=== PATIENT | female | born 1965 | race Caucasian/White ===

== ENCOUNTER 2018-10-08 09:00 | Outpatient (RCR) | payer OTHER, SELFPAY ==
--- NOTE | 2019-04-11 08:14 | HP.PT.NRP ---
HP - Discharge Summary (1) - Patient Information UGO COE was seen in my office for initial evaluation on . The following Plan of Care was established for this patient: This patient was last seen in our office . Pertinent comments regarding their Physical therapy will appear below: Patient is appropriate for d/c at this time. At this point I will be discontinuing this patient from physical therapy. I would be happy to see this patient again in the future if found appropriate by the physician. Thank you! DAVID LincolnT
== END 2018-10-08 19:00 | disposition home or self-care (01) ==
LOC: PT 09:00
PROVIDERS: Family Provider Family Medicine; PCP Family Medicine; Referring Provider Family Medicine; Visit Provider Family Medicine
DX: M50.30 Other cervical disc degeneration, unspecified cervical region (principal); M79.2 Neuralgia and neuritis, unspecified

== ENCOUNTER 2020-06-10 21:27 | Emergency (ER) | payer OTHER, SELFPAY ==
[2020-06-10 21:28] VITALS: BP 144/110; PULSE 90; RESP 18; TEMP 36.6; O2SAT 100; BMI 22.8
--- NOTE | 2020-06-10 21:40 | EKG12_ITS ---
Test Reason : CP Blood Pressure : / mmHG Vent. Rate : 085 BPM Atrial Rate : 085 BPM P-R Int : 132 ms QRS Dur : 090 ms QT Int : 378 ms P-R-T Axes : 032 071 025 degrees QTc Int : 449 ms Normal sinus rhythm with sinus arrhythmia Normal ECG Confirmed by LEIGH GOMEZ, TIFFANY ([id number]), acquisition editor ANALIA THRASHER ([id number]) on 06/13/2020 11:28:50 AM Referred By: BRAXTON Confirmed By:TIFFANY ABRAHAM MD
[2020-06-10 21:55] VITALS: O2SAT 100
[2020-06-10 21:57] VITALS: BP 155/88; PULSE 94; RESP 14; TEMP 36.6; O2SAT 100
[2020-06-10] MEDS: Aspirin 81 MG TAB.CHEW 324 MG PO (22:05)
--- NOTE | 2020-06-10 22:05 | ED.VIS.GEN ---
History of Present Illness Chief Complaint: Shortness of Breath Narrative: 54-year-old female with no significant past medical history presenting with sensation of shortness of breath which she describes as not able to take a deep breath. She has no history of this. Last night she was out to drinks with friends when she noticed happened. This lasted about 30 minutes. Upon going home she was able to sleep but had multiple episodes of this over the course of today. She does not describe it as chest pain. She also states that she had heartburn with it. She is not ever had heartburn before. Patient also states that although she has been working from home she did have her son's girlfriend home from college at [employer] who did test positive for COVID a couple of weeks ago. She reportedly stayed home and quarantined, however she is already gone back to school after her quarantine. She is back at their house over the last couple of days. They went out to a restaurant and they did not wear masks. Patient denies fever, chills, myalgias, loss of taste or smell. Nobody else is sick in her household. She has no history of DVT/PE and no risk factors. Past Medical History - Allergies and Home Meds Allergies/Adverse Reactions: Allergies No Known Allergies Allergy (Verified 06/10/20 21:30) Primary Care Physician: NOT,DEFINED [NON-STAFF] - Past Medical History: None Surgical History: noncontributory Lives: Spouse/ Significant Other Smoking Status: Never smoker Alcohol: None Drugs: None Review of Systems General: Denies: Chills, Fever, Sweats Eyes: Denies: Visual changes - bilaterally, Diplopia ENT: Denies: Rhinorrhea, Sore throat Cardiovascular: Reports: Chest pain - Chest feels congested.. Denies: Palpitations Respiratory: Denies: Dyspnea, Cough, Dyspnea on exertion Gastrointestinal: Denies: Abdominal pain, Nausea, Vomiting, Diarrhea, Melena, Hematochezia Genitourinary: Denies: Dysuria, Hematuria, Frequency Musculoskeletal: Reports: Myalgias. Denies: Arthralgias Skin: Denies: Rash, Abscess Neurological: Denies: Headache, Weakness Psych: Denies: Depression, Anxiety Physical Exam Vital Signs/Narrative: Vital Signs Temp Pulse Resp BP Pulse Ox 06/10/20 21:57 97.8 F 94 14 155/88 H 100 06/10/20 21:55 100 06/10/20 21:28 97.8 F 90 18 144/110 H 100 Inital Vital Signs reviewed: Yes General: Well nourished Head: Normocephalic, Atraumatic Eyes: Perrl, EOMI ENT: Moist mucous membranes, No rhinorrhea Cardiovascular: Regular rate, Regular rhythm, No murmurs Respiratory: No distress, CTA bilaterally, Chest nontender Abdomen: Soft Extremities: Nontender, No edema Skin: Normal color, No rash Neurological: Alert, Oriented x3 Psychological: Normal affect, Normal Mood Diagnostic/Tx/Re-eval Clinical Impression(s) from Imaging Studies Chest X-Ray 06/10/20 22:25 IMPRESSION: Normal x-ray examination of the chest. Electronically Signed: Gracejailene Neris, at 22:46 EDT Tel , Service support , Laboratory Data 06/10/20 06/10/20 21:45 21:45 WBC 8.6 RBC 4.54 Hgb 13.5 Hct 40.2 MCV 88.5 MCH 29.7 MCHC 33.6 RDW Std Deviation 38.9 RDW Coeff of Vlad 12.0 Plt Count 315 MPV 10.1 Immature Gran % (Auto) 0.100 Neut % (Auto) 49.4 Lymph % (Auto) 39.6 [place] % (Auto) 9.0 Eos % (Auto) 0.9 Baso % (Auto) 1.0 Absolute Neuts (auto) 4.2 Absolute Lymphs (auto) 3.40 Nucleated RBC % 0 D-Dimer Quant (PE/DVT) < 0.27 L - Rhythm Strip Rhythm Strip: Sinus Rhythm - EKG Initial EKG Interpretation: Sinus Rhythm, No Acute Injury Pattern - Medical Decision Making Patient was seen and evaluated on arrival for sensation of shortness of breath. She does describe a sensation of congestion in the center of her chest. She states that she has had several 30-minute episodes of the symptoms. She has no history of this. She denies cardiac or pulmonary history. She does have possible exposure to COVID?19 was kept in precautions and she was tested. Besides the feeling of congestion she has no other myalgias, fever, cough, loss of taste or smell. Heart score is 1 therefore she will have delta troponin and EKG. Phone and EKG are unremarkable. D-dimer is negative. Patient will be signed out incoming ED physician for follow up an disposition which I feel will likely be home. She was give instructions on home quarantine as she was tested for covid-19. She was given strict return precautions. Impression: 1. Atypical Chest Pain 2. Dyspnea 3. Possible exposure to covid-19 ED Disposition - Plan for ED Patient: Disposition: Home or Assisted Living Instructions: ED Chest Pain NonCardiac, ED Dyspnea Referrals: NOT,DEFINED [NON-STAFF] - Maico Petit MD [STAFF PHYSICIAN] -
[2020-06-10 22:11] LABS: Absolute Neutrophil Count 4.2 X10^3/uL (2.0-7.7); Basophil# 0.09 X10^3/uL; Eosinophil# 0.08 X10^3/uL; Eosinophils% 0.9 % (0-5); Hematocrit 40.2 % (37-47); Hemoglobin 13.5 g/dL (12.0-15.0); Lymphocyte % 39.6 % (19-41); Mean Corp Hgb Conc 33.6 g/dL (32-36); Mean Corpuscular Hgb 29.7 pg (27.0-32.0); Mean Corpuscular Volume 88.5 fL (81-99); Mean Platelet Vol. 10.1 fl (6.2-12.0); Monocyte# 0.77 X10^3/uL; NRBC Flagged by Analyzer 0 % (0-5); Neutrophil # 4.23 X10^3/uL (2.7-7.7); Neutrophil % 49.4 % (47-70); Platelet Count 315 K/mm3 (150-450); RBC Distribution Width SD 38.9 fl (35.1-43.9); Red Blood Count 4.54 M/mm3 (4.2-5.4); White Blood Count 8.6 K/mm3 (4.4-11.0)
--- NOTE | 2020-06-10 22:25 | RAD_ITS ---
STUDY: X-RAY CHEST REASON FOR EXAM: Female, 54 years old. SOB X 2 DAYS AND CONGESTION IN THE CHEST. TECHNIQUE: Frontal view of the chest COMPARISON: None. FINDINGS: The lungs are clear and expanded. There is no demonstrated pleural abnormality. Normal size heart. Normal mediastinum and mila. Normal visualized pulmonary arteries. Normal visualized aortic arch and descending thoracic aorta. Normal visualized thoracic spine. Normal visualized ribs, clavicles, and shoulders. There is no demonstrated abnormality of the visualized soft tissue structures of the upper abdomen. RAD/Chest 1 View (Portable) IMPRESSION: Normal x-ray examination of the chest. Electronically Signed: Luis Cordon, at 22:46 EDT Tel , Service support ,
[2020-06-10 22:56] VITALS: BP 98/85; PULSE 78; PULSE 87; RESP 20; TEMP 36.7; O2SAT 97; O2SAT 98
[2020-06-10 23:01] LABS: D-Dimer Quantitative (DVT/PE) < 0.27 FEU/ug/m (0.27-0.49)
[2020-06-10 23:15] VITALS: BP 155/90; PULSE 77; RESP 16; TEMP 36.6; O2SAT 97
[2020-06-10 23:22] LABS: Anion Gap 5 (5-15); BUN 21 mg/dL (7-18); BUN/Creat Ratio 17.4 RATIO (10-20); Calcium,Total 9.5 mg/dL (8.5-10.1); Chloride 108 mmol/L (98-107); Creatinine, Serum 1.21 mg/dL (0.55-1.02); EST Glomerular Filtration Rate 50 mL/min (>60); Est Glom Filt Rate - Afr Amer 60 mL/min (>60); Estimated Creatinine Clearance 43.02 ml/min; Glucose 94 mg/dL (74-106); Potassium 3.5 mmol/L (3.5-5.1); Sodium Level 139 mmol/L (136-145)
[2020-06-11 00:21] VITALS: BP 134/101; PULSE 61; PULSE 76; RESP 15; RESP 22; TEMP 36.5; O2SAT 96; O2SAT 99
--- NOTE | 2020-06-11 00:45 | EKG12_ITS ---
Test Reason : REPEAT Blood Pressure : / mmHG Vent. Rate : 058 BPM Atrial Rate : 058 BPM P-R Int : 158 ms QRS Dur : 086 ms QT Int : 428 ms P-R-T Axes : 069 081 044 degrees QTc Int : 420 ms Sinus bradycardia with marked sinus arrhythmia Otherwise normal ECG Confirmed by LEIGH GOMEZ, TIFFANY ([id number]), pictures editor ANALIA THRASHER ([id number]) on 06/13/2020 11:28:59 AM Referred By: CHOLO Confirmed By:TIFFANY ABRAHAM MD
[2020-06-11 01:00] VITALS: BP 124/98; PULSE 71; RESP 20; O2SAT 99
[2020-06-11 02:20] VITALS: BP 110/77; PULSE 61; RESP 15; O2SAT 97
== END 2020-06-11 02:21 | disposition home or self-care (01) ==
PROVIDERS: Emergency Provider Student in an Organized Health Care Education/Training Program
DX: R07.89 Other chest pain (principal); R06.00 Dyspnea, unspecified; Z20.828 Contact with and (suspected) exposure to other viral communicable diseases
CPT/HCPCS: 71045; 80048; 84484; 85025; 85379; 87635; 93005; 96360; 96361; 99284; J7040; A4216; U0003

== ENCOUNTER 2022-11-10 01:56 | Emergency (ER) | payer OTHER, SELFPAY ==
[2022-11-10 01:57] VITALS: PULSE 112; RESP 18; TEMP 36.3; O2SAT 100; BMI 24.9
[2022-11-10 02:00] VITALS: BP 162/97
--- NOTE | 2022-11-10 02:05 | EKG12_ITS ---
Test Reason : CP Blood Pressure : / mmHG Vent. Rate : 089 BPM Atrial Rate : 089 BPM P-R Int : 134 ms QRS Dur : 086 ms QT Int : 380 ms P-R-T Axes : 051 081 040 degrees QTc Int : 462 ms Normal sinus rhythm Low voltage QRS Borderline ECG Confirmed by LEONA GOMEZ, ODIN ([id number]), metropolitan editor ANALIA THRASHER ([id number]) on 11/11/2022 10:07:17 AM Referred By: Confirmed By:ODIN DELGADILLO MD
[2022-11-10 02:22] VITALS: BP 139/96; PULSE 76; RESP 16; O2SAT 99
--- NOTE | 2022-11-10 02:32 | RAD_ITS ---
EXAM: XR CHEST, 1 VIEW CLINICAL INDICATION: Rt chest pain TECHNIQUE: Frontal view of the chest. This report was created using [employer] report generation technology. COMPARISON: Previous chest radiograph of 06/10/2020. FINDINGS: LUNGS AND PLEURAL SPACES: Unremarkable. No consolidation or edema. No pneumothorax. No effusion. HEART: Unremarkable. Cardiac silhouette not enlarged. Normal pulmonary vasculature. MEDIASTINUM: Central airways and mediastinal contour are unremarkable. No mediastinal widening. Trachea is midline. BONES/JOINTS: No acute osseous abnormality. SOFT TISSUES: Unremarkable. RAD/Chest 1 View (Portable) IMPRESSION: No significant interval change. No radiographic evidence of acute cardiopulmonary disease. Electronically Signed: Partha Martinez MD at 3:09 EST ,
[2022-11-10 02:45] LABS: Absolute Lymphocyte Count 2.84 X10^3/uL (0.83-4.51); Absolute Neutrophil Count 3.5 X10^3/uL (2.0-7.7); Basophil# 0.09 X10^3/uL; Basophil% 1.2 % (0-1); Eosinophil# 0.46 X10^3/uL; Eosinophils% 5.9 % (0-5); Hematocrit 37.1 % (37-47); Hemoglobin 12.7 g/dL (12.0-15.0); Lymphocyte # 2.84 X10^3/ul (0.83-4.51); Lymphocyte % 36.6 % (19-41); Mean Corp Hgb Conc 34.2 g/dL (32-36); Mean Corpuscular Hgb 30.2 pg (27.0-32.0); Mean Corpuscular Volume 88.3 fL (81-99); Mean Platelet Vol. 9.8 fl (6.2-12.0); Monocyte# 0.89 X10^3/uL; Monocyte% 11.5 % (0-10); NRBC Flagged by Analyzer 0 % (0-5); Neutrophil # 3.45 X10^3/uL (2.7-7.7); Neutrophil % 44.5 % (47-70); Platelet Count 276 K/mm3 (150-450); RBC Distribution Width CV 12.1 % (11.6-14.6); RBC Distribution Width SD 39.4 fl (35.1-43.9); White Blood Count 7.8 K/mm3 (4.4-11.0)
[2022-11-10 03:08] LABS: Anion Gap 7 (5-15); BUN 16 mg/dL (7-18); BUN/Creat Ratio 16.1 RATIO (10-20); Calcium,Total 9.6 mg/dL (8.5-10.1); Chloride 107 mmol/L (98-107); Creatinine, Serum 0.99 mg/dL (0.55-1.02); EST Glomerular Filtration Rate 62 mL/min (>60); Est Glom Filt Rate - Afr Amer 75 mL/min (>60); Estimated Creatinine Clearance 50.78 ml/min; Glucose 121 mg/dL (74-106); Magnesium 2.2 mg/dL (1.6-2.6); Potassium 3.5 mmol/L (3.5-5.1); Sodium Level 141 mmol/L (136-145); Thyroid Stim Hormone (TSH) 8.23 uIU/mL (0.358-3.74); Troponin-I HS 4 pg/mL (3.0-54.0)
--- NOTE | 2022-11-10 04:09 | EDS_ITS ---
HPI History of Present Illness Chief Complaint: Palpitations Narrative Narrative: Patient is a 57-year-old female who reports no significant past medical history. She states she was at home watching a movie on [place] [employer] with her laying in bed and she got up to use the bathroom and after sitting back down folic her heart was racing and skipping beats. She states this was persisting for over 30 minutes to an hour and this concerned her based on the prolonged nature and therefore she comes in for evaluation. She denies any previous history of cardiac dysrhythmia and she denies any excessive stimulant use or illicit drug use. PFSH PFSH Medical History no medical history Home Medications gabapentin 300 mg capsule 300 mg PO DAILY 11/10/22 [History Last Taken Unknown] Allergy/AdvReac Type Severity Reaction Status Date / Time No Known Allergies Allergy Verified 11/10/22 01:59 Social History Smoking Status: Never smoker ROS ROS ED Constitutional Constitutional ED: Denies chills or fever(s) Eyes Eyes: Denies change in vision ENT ENT ED: Denies sore throat Cardiovascular Cardiovascular: Reports palpitations and racing heartbeat; Denies chest pain Respiratory/Chest Respiratory/Chest: Denies cough or dyspnea Gastrointestinal Gastrointestinal: Denies abdominal pain, diarrhea, nausea or vomiting Genitourinary Genitourinary ED: Denies dysuria Musculoskeletal Musculoskeletal: Denies myalgias Integumentary Denies rash Neurologic Neurologic: Denies headache(s) Hematologic/Lymphatic Hematologic/Lymphatic: Denies easy bleeding or easy bruising EXAM Physical Exam Const Vital Signs: 11/10/22 01:57 11/10/22 02:00 11/10/22 02:22 Temperature 97.4 F L Temperature Source Temporal Pulse Rate 112 H 76 Respiratory Rate 18 16 Blood Pressure 162/97 H 139/96 H Blood Pressure Mean 118 110 Pulse Ox 100 99 Oxygen Delivery Method Room Air Room Air Positive well nourished and well developed General Appearance ED: well developed HEENT Reports moist mucous membranes Eyes PERRL and EOMs intact bilaterally Neck supple Resp normal respiratory effort and clear to auscultation bilaterally Cardio regular rhythm Rate: tachycardic and other Other Details: Tachycardic rate with regular rhythm. Radial pulses are plus 2 out of 4 bilaterally are equal and symmetric Carotid pulses equal and symmetric as well GI normal to inspection, nondistended, normoactive bowel sounds, non-tender, non- distended and no masses GI Narrative: No voluntary guarding or rigidity no pulsatile mass Auscultation: normoactive bowel sounds Palpation: soft Extremity normal to inspection Extremity Narrative: No asymmetric edema no pitting edema negative Homans' sign bilaterally Neuro oriented x3 and CN's II-XII intact bilaterally Sensorium / Orientation: alert Psych mental status grossly normal Skin no rashes or lesions noted MDM MDM MDM Narrative Medical decision making narrative: Patient presented to the ER slightly tachycardic but this was sinus tachycardia and not a cardiac dysrhythmia. However with her report of a elevated heart rate I did elect to perform basic laboratory studies. There was concern she had normal rhythm such as atrial fibrillation or SVT or signs of atypical cardiac event or possibly severe electrolyte derangement. The labs showed no clinically significant findings patient's heart rate normalized and remained sinus rhythm. She had no chest pain or shortness of breath on reevaluation. Therefore with resolution of symptoms and a negative work-up I do not feel there is need for further evaluation and she is otherwise safe for discharge. Lab Data Attestation: I reviewed the patient's lab results. Labs: Laboratory Results - last 24 hr 11/10/22 11/10/22 02:40 02:40 WBC 7.8 RBC 4.20 Hgb 12.7 Hct 37.1 MCV 88.3 MCH 30.2 MCHC 34.2 RDW Std Deviation 39.4 RDW Coeff of Vlad 12.1 Plt Count 276 MPV 9.8 Immature Gran % (Auto) 0.300 Neut % (Auto) 44.5 L Lymph % (Auto) 36.6 [place] % (Auto) 11.5 H Eos % (Auto) 5.9 H Baso % (Auto) 1.2 H Absolute Neuts (auto) 3.5 Absolute Lymphs (auto) 2.84 Nucleated RBC % 0 Sodium 141 Potassium 3.5 Chloride 107 Carbon Dioxide 27.0 Anion Gap 7 BUN 16 Creatinine 0.99 Estim Creat Clear Calc 50.78 Est GFR (MDRD) Af Amer 75 Est GFR (MDRD) Non-Af 62 BUN/Creatinine Ratio 16.1 Glucose 121 H Calcium 9.6 Magnesium 2.2 Troponin I High Sens 4 TSH 8.23 H Radiography Diagnostic Testing: Clinical Impression(s) from Imaging Studies Chest X-Ray 11/10/22 02:32 IMPRESSION: No significant interval change. No radiographic evidence of acute cardiopulmonary disease. Electronically Signed: Partha Martinez MD at 3:09 EST , Chest x-ray as interpreted by the emergency medicine physician reveals no acute infiltrate pneumothorax or pleural effusion Discharge Plan Triage Chief Complaint: Palpitations ED Provider: Galen Lorenzo Dx/Rx/DC Orders Clinical Impression: Heart palpitations, Hypothyroidism Instructions: ED Hypothyroidism, ED Palpitations Prescriptions: No Action gabapentin 300 mg capsule 300 mg PO DAILY Label Comments: TAKE 1 CAPSULE BY MOUTH EVERY DAY AT NIGHT Primary Care Provider: Ronaldo Tavarez Referrals: Ronaldo Tavarez MD [Primary Care Provider] - Activity Restrictions/Additional Instructions: Your work-up today showed no signs of abnormal rhythm or heart damage but it did show changes concerning for hypothyroidism. Please follow-up with your family doctor for further testing and return to the ER should you have any further concerns Disposition Disposition: Home, Self Care Discharge Date/Time: 11/10/22 04:26
[2022-11-10 04:26] VITALS: BP 139/90; PULSE 75; RESP 16
== END 2022-11-10 04:26 | disposition home or self-care (01) ==
PROVIDERS: Emergency Provider Emergency Medicine; PCP Internal Medicine; Visit Provider Emergency Medicine
DX: E03.9 Hypothyroidism, unspecified (principal); R00.2 Palpitations
CPT/HCPCS: 71045; 80048; 83735; 84443; 84484; 85025; 93005; 96360; 99282; J7040; A4216